=== PATIENT | male | born 1960 | race African-American/Black ===

== ENCOUNTER 2019-07-02 13:03 | Inpatient (IN) | payer OTHER ==
[2019-07-02 14:41] VITALS: BMI 33.5
--- NOTE | 2019-07-02 15:41 | HP ---
CIWA Score Nausea/Vomitin-No Nausea/No Vomiting Muscle Tremors: None Anxiety: 0-No Anxiety, at Ease Agitation: 0-Normal Activity Paroxysmal Sweats: No Perspiration Orientation: 0-Oriented Tacttile Disturbances: 0-None Auditory Disturbances: 0-None Visual Disturbances: 0-None Headache: 1-Very Mild CIWA-Ar Total Score: 1 - Admission Criteria OASAS Guidelines: Admission for Medically Managed Detox: Requires at least one of the followin. CIWA greater than 12 2. Seizures within the past 24 hours 3. Delirium tremens within the past 24 hours 4. Hallucinations within the past 24 hours 5. Acute intervention needed for co occurring medical disorder 6. Acute intervention needed for co occurring psychiatric disorder 7. Severe withdrawal that cannot be handled at a lower level of care (continued vomiting, continued diarrhea, abnormal vital signs) requiring intravenous medication and/or fluids 8. Patient presents the following: None of the above Admission Criteria Met: Admission criteria not met Admitting History and Physical - Primary Care Physician PCP: Dr. Singleton ([facility]) - Admission Chief Complaint: seeking rehab for alcohol History of Present Illness: Seeking rehab for alcohol Has been drinking off and on since age 29. Drinks a quart of vodka daily. Has withdrawn. Has not had a seizure. Has had blackouts. Has been to detox and rehab in the past. Last drink last week. Smokes 9 cigarettes daily since age 34. Has snorted cocaine, smoked crack, PCP in the past. Never injected. Never used heroin, fentanyl, prescription drugs. Denies sweating, anxiety, agitation, audio/visual hallucinations, headache, fever, chills Complains of throbbing L frontal headache for several weeks. Occurs twice weekly. Comes on at night. Worsened by anxiety. Takes 4 baby aspirin daily for the past few weeks. Headache has no relationship to time of day. Not worsened by light or noise. No neck stiffness. No head trauma. Fell some time ago. Not clear when. L wrist uncomfortable. Denies seizure. Denies head trauma. PMH: DM PSH: [facility] for abdominal surgery - likely obstruction Psych: was seeing therapist at [facility] but stopped. Anxiety/Depression Meds: takes a medication to help him stop drinking but does not recall the name. Medication for DM. Allergies: none Social: Lives with parents and brothers in [facility]. Sexually active with one female partner; does not use condoms Meds confirmed. Pt brought pills with him. Will admit for rehab History Source: Patient Limitations to Obtaining History: No Limitations - Past Medical History DEPUTY SHERIFF: No: Migraine Cardiovascular: No: HTN Pulmonary: No: Asthma Gastrointestinal: Yes: Other (hx SBO requiring surgery) Renal/: No: Renal Failure Heme/Onc: No: Anemia Infectious Disease: No: HIV (has been screened) Psych: Yes: Anxiety, Depression - Past Surgical History Additional Past Surgical History: Abdominal surgery, likely for SBO - Smoking History Smoking history: Current every day smoker Have you smoked in the past 12 months: Yes Aproximately how many cigarettes per day: 9 - Alcohol/Substance Use Hx Alcohol Use: Yes History of Substance Use: reports: None (2 quarts vodka) Date of Last Use: 06/25/19 - Social History Usual Living Arrangement: Yes: With Parent ADL: Independent Occupation: was a doorman. Currently unemployed History of Recent Travel: No Admission [facility] Allergies/Adverse Reactions: Allergies Allergy/AdvReac Type Severity Reaction Status Date / Time No Known Allergies Allergy Verified 07/02/19 14:23 Exam Limitations: No Limitations - Ebola screening Have you traveled outside of the country in the last 21 days: No Have you had contact with anyone from an Ebola affected area: No Do you have a fever: No - Review of Systems Constitutional: See HPI EENT: reports: No Symptoms Reported Respiratory: reports: No Symptoms reported Cardiac: reports: No Symptoms Reported GI: reports: No Symptoms Reported : reports: No Symptoms Reported Musculoskeletal: reports: No Symptoms Reported Integumentary: reports: No Symptoms Reported Neuro: reports: Headache Patient History - Patient Medical History Hx Asthma: No Hx Chronic Obstructive Pulmonary Disease (COPD): No Hx Cardiac Disorders: No Hx Hypertension: Yes (ON MEDS) Hx Seizures: Yes (LAST YEAR ETOH RLT) Hx Diabetes: Yes (ON MEDS) Hx Gastrointestinal Disorders: No Hx Genitourinary Disorders: No Hx Sexually Transmitted Disorders: No Hx Renal Disease (ESRD): No Hx Depression: No Hx Suicide Attempt: No Hx Schizophrenia: No - Patient Surgical History Past Surgical History: No Hx Neurologic Surgery: No Hx Cataract Extraction: No Hx Cardiac Surgery: No Hx Lung Surgery: No Hx Breast Surgery: No Hx Breast Biopsy: No Hx Abdominal Surgery: No Hx Appendectomy: No Hx Cholecystectomy: No Hx Genitourinary Surgery: No Hx Section: No Hx Orthopedic Surgery: No Anesthesia Reaction: No - PPD History Previous Implant?: Yes Documented Results: Negative w/o proof Implanted On Prior R Admission?: No - Smoking Cessation Smoking history: Current every day smoker Have you smoked in the past 12 months: Yes Aproximately how many cigarettes per day: 9 Hx Chewing Tobacco Use: No Initiated information on smoking cessation: Yes 'Breaking Loose' booklet given: 07/02/19 - Substances abused Alcohol Substance route: Oral Frequency: 3-6 times per week Amount used: VODKA- A QUART / BEERS 6PK [id number] Age of first use: 29 Date of last use: 06/25/19 Admission Physical Exam BHS - Vital Signs Vital Signs: Vital Signs - 24 hr 07/02/19 14:22 Temperature 98.2 F Pulse Rate 92 H Respiratory 19 Rate Blood Pressure 134/91 - Physical General Appearance: Yes: Within Normal Limits HEENTM: Yes: Within Normal Limits, EOMI, Hearing grossly Normal, Normal ENT Inspection, Normocephalic, Normal Voice, MT Respiratory: Yes: Within Normal Limits, Lungs Clear Neck: Yes: Within Normal Limits, No masses,lesions,Nodules Cardiology: Yes: Within Normal Limits, Regular Rhythm, Regular Rate, S1, S2 Abdominal: Yes: Within Normal Limits, Normal Bowel Sounds, Non Tender, Soft Back: Yes: Normal Inspection Musculoskeletal: Yes: Within Normal Limits Extremities: Yes: Within Normal Limits Neurological: Yes: Within Normal Limits, review appraiser II-XII NML intact, Fully Oriented, Alert, Motor Strength 5/5 Screened but not Admitted - Documentation of Visit Screened but not Admitted: No Breathalyzer - Breathalyzer Breathalyzer: 0 Urine Drug Screen - Test Device Lot number: [id number] Expiration date: 01/02/21 - Control Is test valid?: Yes - Results Drug screen NEGATIVE: Yes Inpatient Rehab Admission - Rehab Decision to Admit Inpatient rehab admission?: Yes - Initial Determination Are CD services needed?: Yes Free of communicable disease: Yes Not in need of hospitalization: Yes - Rehab Admission Criteria Previous failed treatment: Yes Poor recovery environment: Yes Comorbidities: Yes Lacks judgement: Yes Patient is meeting Inpatient Rehab admission criteria:: Yes
[2019-07-02] MEDS ORDERED: IBUPROFEN 400 MG TABLET (FP) PO PRN (16:07)
[2019-07-02] MEDS ORDERED: P-EPHED 60MG/TRIPROLIDI 2.5MG TABLET PO PRN (16:07)
[2019-07-02] MEDS ORDERED: LOPERAMIDE HCL 2 MG CAPSULE PO PRN (16:07)
[2019-07-02] MEDS ORDERED: guaiFENesin 200 MG/10 ML 10 ML UNIT-DOSE CUPS PO PRN (16:07)
[2019-07-02] MEDS ORDERED: MAGNESIUM HYDROX 2400MG/30ML ORAL SUSPENSION 30 ML CUP PO PRN (16:07)
--- NOTE | 2019-07-02 16:43 | PN ---
Teaching Attending Note Name of Resident: Solomon Dangelo ATTENDING PHYSICIAN STATEMENT I saw and evaluated the patient. I reviewed the resident's note and discussed the case with the resident. I agree with the resident's findings and plan as documented. SUBJECTIVE: 58 y.o. male here for etoh use, reports latest use was Monday , denies seizures , + falls while intoxicated most recently 3 days ago , hit left elbow, denies pain in the elbow, reports some discomfort in the left wrist, denies LOC , denies head trauma . tobacco : 9 cigarettes /day since age 34. PMH: DM, HTN , HLD , HF PSH: [facility] for abdominal surgery Psych: Anxiety/Depression denies SI / HI CIWA 1 OBJECTIVE: wnwd Vital Signs - 24 hr 07/02/19 14:22 Temperature 98.2 F Pulse Rate 92 H Respiratory 19 Rate Blood Pressure 134/91 ASSESSMENT AND PLAN: AUD - rehab
[2019-07-02] MEDS: GABAPENTIN 300 MG CAPSULE PO SCH (21:37)
[2019-07-02] MEDS: ATORVASTATIN CA 40 MG TABLET (FP) PO SCH (21:37)
[2019-07-02] MEDS: ACETAMINOPHEN 325 MG TABLET (FP) PO PRN (21:37)
[2019-07-02] MEDS: FAMOTIDINE 40 MG TABLET PO SCH (21:37)
[2019-07-03] MEDS: metFORMIN HCL 500 MG TABLET (FP) PO SCH (06:13)
[2019-07-03] MEDS: sitaGLIPtin PHOSPHATE 50 MG TABLET PO SCH (06:13)
[2019-07-03] MEDS: INSULIN SLIDING SCALE (NOVOLOG) 1 VIAL SQ SCH ×2 (06:14→17:11)
[2019-07-03] MEDS: MAG HYDROX/AL HYDROX/SIMETH 30 ML UNIT-DOSE CUP PO PRN (09:51)
[2019-07-03] MEDS ORDERED: PATIENT'S OWN MEDICATION (NON-FORMULARY) (Sitagliptin Phos/Metformin Hcl [Janumet Xr 50-1, PO SCH (10:00)
[2019-07-03] MEDS ORDERED: PATIENT'S OWN MEDICATION (NON-FORMULARY) (Empagliflozin [Jardiance] 25 MG) PO SCH (10:00)
[2019-07-03] MEDS ORDERED: ONDANSETRON *ODT* 4 MG TABLET SL PRN (10:18)
--- NOTE | 2019-07-03 10:25 | PN ---
[facility] Progress Note (SOAP) Subjective: Patient admitted to [address] [place] [address] yesterday. He states that he vomited x 3 after breakfast. Reports that he drank milk and that bothers his stomach; after eating he reclined flat on the bed. He also reports a hx of GERD, is on PEPCID. He was also treated at [facility] 1-3 months ago for vomiting, a stomach virus, and constipation (?). He has been actively using lee ann dust prior to admission and now reports headaches related to same. Denies stomach pain, diarrhea. Objective: Laboratory Last Values POC Glucometer 185 UNITS (80-120) 07/03/19 06:12 Vital Signs Period Temp Pulse Resp BP Sys/Rendon Pulse Ox Last 24 Hr 97.2 F-98.2 F 78-92 18-19 134-137/91-92 P/E: General: no apparent distress HEENTM: PERRLA, normocephalic Neck: supple Lungs: clear Heart: s1 s2 ABD: +BS Neuro: CN 2-12 intact. 07/03/19 10:23 Assessment: Vomiting r/t GERD Headache OVIDIO 07/03/19 10:24 07/03/19 10:24 07/03/19 10:28 Plan: Vomiting: Maalox, now. Zofran PRN ordered. Encouraged to sit up after eating, avoid dairy products Headache: tylenol PRN, Increase H2O OVIDIO: Continue rehab, maintain safety
[2019-07-03] MEDS: GABAPENTIN 300 MG CAPSULE PO SCH ×2 (10:50→21:44)
[2019-07-03] MEDS: ASPIRIN 81 MG CHEWABLE TABLETS PO SCH (10:50)
[2019-07-03] MEDS: NIFEdipine E.R 60 MG TABLET PO SCH (10:50)
[2019-07-03] MEDS: THIAMINE HCL 100 MG TABLET (FP) PO SCH (10:50)
[2019-07-03] MEDS: LISINOPRIL 5 MG TABLET (FP) PO SCH (10:50)
[2019-07-03] MEDS: HYDROCHLOROTHIAZIDE 25 MG TABLET (FP) PO SCH (10:50)
[2019-07-03] MEDS: NICOTINE 14 MG/24 HOURS TOPICAL PATCH TD SCH (10:51)
[2019-07-03 12:22] LABS: HEMATOCRIT 46.2 % (35.4-49); HEMOGLOBIN 15.3 GM/dL (11.7-16.9); MCHC 33.1 g/dl (32.0-35.9); MEAN CELL VOLUME 78.5 fl (80-96); MEAN PLT VOLUME 9.3 fl (7.5-11.1); PLATELET COUNT 280 K/MM3 (134-434); RBC 5.88 M/mm3 (4.00-5.60); RDW 15.4 % (11.9-15.9); WHITE BLOOD COUNT 9.9 K/mm3 (4.0-10.0)
[2019-07-03 12:36] LABS: ALBUMIN 4.3 g/dl (3.4-5.0); BILIRUBIN,TOTAL 0.5 mg/dL (0.2-1); BLOOD UREA NITROGEN 13.6 mg/dL (7-18); CALCIUM 9.7 mg/dL (8.5-10.1); CREATININE 1.1 mg/dL (0.55-1.3); POTASSIUM 4.3 mmol/L (3.5-5.1); TOT PROT 7.6 g/dl (6.4-8.2)
[2019-07-03 12:36] LABS: PH,URINE 6.5 (5.0-8.0); URINE APPEARANCE CLEAR; URINE BILIRUBIN NEGATIVE (NEGATIVE); URINE COLOR YELLOW; URINE GLUCOSE (UA) 3+ (NEGATIVE); URINE KETONE NEGATIVE (NEGATIVE); URINE LEUK ESTERASE NEGATIVE (NEGATIVE); URINE NITRITE NEGATIVE (NEGATIVE); URINE PROTEIN NEGATIVE (NEGATIVE)
[2019-07-03] MEDS: MULTIVITAMINS (DAILY MVI) TABLET (FP) PO SCH (14:10)
--- NOTE | 2019-07-03 15:33 | EKG ---
Test Reason : Blood Pressure : / mmHG Vent. Rate : 073 BPM Atrial Rate : 073 BPM P-R Int : 146 ms QRS Dur : 092 ms QT Int : 392 ms P-R-T Axes : 063 015 -26 degrees QTc Int : 431 ms NORMAL SINUS RHYTHM NONSPECIFIC T WAVE ABNORMALITY ABNORMAL ECG NO PREVIOUS ECGS AVAILABLE Confirmed by MD Gabriela, Jesse ([id number]) on 07/03/2019 3:32:47 PM Referred By: Tonio FRAUSTO Confirmed By:Jesse Ochoa MD
[2019-07-03] MEDS: MELATONIN 5 MG TABLETS PO PRN (21:44)
[2019-07-03] MEDS: ATORVASTATIN CA 40 MG TABLET (FP) PO SCH (21:44)
[2019-07-03] MEDS: FAMOTIDINE 40 MG TABLET PO SCH (21:46)
[2019-07-04] MEDS: metFORMIN HCL 500 MG TABLET (FP) PO SCH (07:02)
[2019-07-04] MEDS: sitaGLIPtin PHOSPHATE 50 MG TABLET PO SCH (07:02)
[2019-07-04] MEDS: INSULIN SLIDING SCALE (NOVOLOG) 1 VIAL SQ SCH ×2 (07:04→17:06)
[2019-07-04] MEDS: NICOTINE 14 MG/24 HOURS TOPICAL PATCH TD SCH (10:56)
[2019-07-04] MEDS: LISINOPRIL 5 MG TABLET (FP) PO SCH (10:56)
[2019-07-04] MEDS: ASPIRIN 81 MG CHEWABLE TABLETS PO SCH (10:56)
[2019-07-04] MEDS: NIFEdipine E.R 60 MG TABLET PO SCH (10:56)
[2019-07-04] MEDS: GABAPENTIN 300 MG CAPSULE PO SCH ×2 (10:56→22:06)
[2019-07-04] MEDS: HYDROCHLOROTHIAZIDE 25 MG TABLET (FP) PO SCH (10:56)
[2019-07-04] MEDS: THIAMINE HCL 100 MG TABLET (FP) PO SCH (10:57)
[2019-07-04] MEDS: MULTIVITAMINS (DAILY MVI) TABLET (FP) PO SCH (12:10)
[2019-07-04] MEDS: FAMOTIDINE 40 MG TABLET PO SCH (22:05)
[2019-07-04] MEDS: ATORVASTATIN CA 40 MG TABLET (FP) PO SCH (22:07)
[2019-07-05] MEDS: sitaGLIPtin PHOSPHATE 50 MG TABLET PO SCH (06:21)
[2019-07-05] MEDS: metFORMIN HCL 500 MG TABLET (FP) PO SCH (06:21)
[2019-07-05] MEDS: INSULIN SLIDING SCALE (NOVOLOG) 1 VIAL SQ SCH ×2 (06:24→16:27)
[2019-07-05] MEDS: GABAPENTIN 300 MG CAPSULE PO SCH ×2 (10:48→21:38)
[2019-07-05] MEDS: ASPIRIN 81 MG CHEWABLE TABLETS PO SCH (10:49)
[2019-07-05] MEDS: LISINOPRIL 5 MG TABLET (FP) PO SCH (10:49)
[2019-07-05] MEDS: MULTIVITAMINS (DAILY MVI) TABLET (FP) PO SCH (10:49)
[2019-07-05] MEDS: NIFEdipine E.R 60 MG TABLET PO SCH (10:49)
[2019-07-05] MEDS: THIAMINE HCL 100 MG TABLET (FP) PO SCH ×2 (10:49→21:38)
[2019-07-05] MEDS: HYDROCHLOROTHIAZIDE 25 MG TABLET (FP) PO SCH (10:49)
[2019-07-05] MEDS: NICOTINE 14 MG/24 HOURS TOPICAL PATCH TD SCH (10:49)
[2019-07-05] MEDS: ATORVASTATIN CA 40 MG TABLET (FP) PO SCH (21:38)
[2019-07-05] MEDS: FAMOTIDINE 20 MG TABLET PO SCH (21:55)
[2019-07-06] MEDS: metFORMIN HCL 500 MG TABLET (FP) PO SCH (06:23)
[2019-07-06] MEDS: sitaGLIPtin PHOSPHATE 50 MG TABLET PO SCH (06:24)
[2019-07-06] MEDS: INSULIN SLIDING SCALE (NOVOLOG) 1 VIAL SQ SCH ×2 (06:32→16:28)
[2019-07-06] MEDS: HYDROCHLOROTHIAZIDE 25 MG TABLET (FP) PO SCH (10:22)
[2019-07-06] MEDS: NIFEdipine E.R 60 MG TABLET PO SCH (10:22)
[2019-07-06] MEDS: LISINOPRIL 5 MG TABLET (FP) PO SCH (10:22)
[2019-07-06] MEDS: GABAPENTIN 300 MG CAPSULE PO SCH ×2 (10:22→22:06)
[2019-07-06] MEDS: ASPIRIN 81 MG CHEWABLE TABLETS PO SCH (10:22)
[2019-07-06] MEDS: NICOTINE 14 MG/24 HOURS TOPICAL PATCH TD SCH (10:23)
[2019-07-06] MEDS: THIAMINE HCL 100 MG TABLET (FP) PO SCH (10:24)
[2019-07-06] MEDS: MULTIVITAMINS (DAILY MVI) TABLET (FP) PO SCH (10:25)
--- NOTE | 2019-07-06 11:57 | PN ---
S Progress Note Note: pt requesting Mag citrate for constipation , states helpful in the past . c/o left elbow pain h/o fall > 2 weeks ago . Vital Signs - 24 hr 07/06/19 07/06/19 07/06/19 00:30 03:30 07:10 Temperature 97.8 F Pulse Rate 78 Respiratory 18 18 18 Rate Blood Pressure 115/71 07/06/19 09:12 Temperature 97.6 F Pulse Rate 88 Respiratory 18 Rate Blood Pressure 143/86 P :Constipation prophylaxis : Mag Citrate in standard admission sets. Left elbow pain - XR ordered, f/up w/ orthopedics after d/c . Pt verbalizes understanding and agreement .
[2019-07-06] MEDS: ATORVASTATIN CA 40 MG TABLET (FP) PO SCH (22:06)
[2019-07-06] MEDS: FAMOTIDINE 20 MG TABLET PO SCH (22:06)
[2019-07-07] MEDS: metFORMIN HCL 500 MG TABLET (FP) PO SCH (06:28)
[2019-07-07] MEDS: sitaGLIPtin PHOSPHATE 50 MG TABLET PO SCH (06:28)
[2019-07-07] MEDS ORDERED: INSULIN (NOVOLOG) ASPART 100 UNITS/ML 10ML VIAL ONE (06:32)
[2019-07-07] MEDS: INSULIN SLIDING SCALE (NOVOLOG) 1 VIAL SQ SCH ×2 (06:32→17:36)
[2019-07-07] MEDS: MAGNESIUM CITRATE 300 ML BOTTLE PO PRN (06:57)
[2019-07-07] MEDS: HYDROCHLOROTHIAZIDE 25 MG TABLET (FP) PO SCH (10:37)
[2019-07-07] MEDS: ASPIRIN 81 MG CHEWABLE TABLETS PO SCH (10:37)
[2019-07-07] MEDS: NIFEdipine E.R 60 MG TABLET PO SCH (10:37)
[2019-07-07] MEDS: LISINOPRIL 5 MG TABLET (FP) PO SCH (10:37)
[2019-07-07] MEDS: GABAPENTIN 300 MG CAPSULE PO SCH ×2 (10:37→21:38)
[2019-07-07] MEDS: NICOTINE 14 MG/24 HOURS TOPICAL PATCH TD SCH (10:38)
[2019-07-07] MEDS: MULTIVITAMINS (DAILY MVI) TABLET (FP) PO SCH (10:38)
[2019-07-07] MEDS: THIAMINE HCL 100 MG TABLET (FP) PO SCH (10:40)
[2019-07-07] MEDS: FAMOTIDINE 20 MG TABLET PO SCH (21:38)
[2019-07-07] MEDS: ATORVASTATIN CA 40 MG TABLET (FP) PO SCH (21:38)
[2019-07-07] MEDS: MELATONIN 5 MG TABLETS PO PRN (21:38)
[2019-07-08] MEDS: metFORMIN HCL 500 MG TABLET (FP) PO SCH (06:44)
[2019-07-08] MEDS: sitaGLIPtin PHOSPHATE 50 MG TABLET PO SCH (06:45)
[2019-07-08] MEDS ORDERED: INSULIN (NOVOLOG) ASPART 100 UNITS/ML 10ML VIAL ONE ×2 (07:32→16:27)
[2019-07-08] MEDS: INSULIN SLIDING SCALE (NOVOLOG) 1 VIAL SQ SCH ×2 (07:36→16:33)
[2019-07-08] MEDS: LISINOPRIL 5 MG TABLET (FP) PO SCH (10:58)
[2019-07-08] MEDS: GABAPENTIN 300 MG CAPSULE PO SCH ×2 (10:58→21:46)
[2019-07-08] MEDS: MULTIVITAMINS (DAILY MVI) TABLET (FP) PO SCH (10:58)
[2019-07-08] MEDS: THIAMINE HCL 100 MG TABLET (FP) PO SCH (10:58)
[2019-07-08] MEDS: HYDROCHLOROTHIAZIDE 25 MG TABLET (FP) PO SCH (10:58)
[2019-07-08] MEDS: NIFEdipine E.R 60 MG TABLET PO SCH (10:58)
[2019-07-08] MEDS: ASPIRIN 81 MG CHEWABLE TABLETS PO SCH (10:58)
[2019-07-08] MEDS: NICOTINE 14 MG/24 HOURS TOPICAL PATCH TD SCH (10:58)
--- NOTE | 2019-07-08 11:39 | PN ---
BHS Progress Note Note: Patient c/o redness to both eyes. Denies discharge, burning, tearing and itching. PE +perrla, eoms intact bl sclera with mild redness no discharge presents a/p: OU redness will order Visine drops prn
[2019-07-08] MEDS: TETRAHYDROZOLINE HCL EYE DROPS OU PRN (12:34)
[2019-07-08] MEDS: ATORVASTATIN CA 40 MG TABLET (FP) PO SCH (21:45)
[2019-07-08] MEDS: FAMOTIDINE 20 MG TABLET PO SCH (21:46)
[2019-07-08] MEDS: MELATONIN 5 MG TABLETS PO PRN (21:47)
[2019-07-09] MEDS: metFORMIN HCL 500 MG TABLET (FP) PO SCH (07:06)
[2019-07-09] MEDS: sitaGLIPtin PHOSPHATE 50 MG TABLET PO SCH (07:07)
[2019-07-09] MEDS ORDERED: INSULIN (NOVOLOG) ASPART 100 UNITS/ML 10ML VIAL ONE (07:09)
[2019-07-09] MEDS: INSULIN SLIDING SCALE (NOVOLOG) 1 VIAL SQ SCH ×2 (07:10→16:42)
[2019-07-09] MEDS: LISINOPRIL 5 MG TABLET (FP) PO SCH (10:59)
[2019-07-09] MEDS: HYDROCHLOROTHIAZIDE 25 MG TABLET (FP) PO SCH (10:59)
[2019-07-09] MEDS: GABAPENTIN 300 MG CAPSULE PO SCH ×2 (10:59→21:46)
[2019-07-09] MEDS: NIFEdipine E.R 60 MG TABLET PO SCH (10:59)
[2019-07-09] MEDS: THIAMINE HCL 100 MG TABLET (FP) PO SCH (10:59)
[2019-07-09] MEDS: NICOTINE 14 MG/24 HOURS TOPICAL PATCH TD SCH (10:59)
[2019-07-09] MEDS: ASPIRIN 81 MG CHEWABLE TABLETS PO SCH (10:59)
[2019-07-09] MEDS: MULTIVITAMINS (DAILY MVI) TABLET (FP) PO SCH (11:00)
[2019-07-09] MEDS: MENTHOL/PHENOL 1 EACH UD MM PRN (11:02)
[2019-07-09] MEDS: ATORVASTATIN CA 40 MG TABLET (FP) PO SCH (21:46)
[2019-07-09] MEDS: FAMOTIDINE 20 MG TABLET PO SCH (21:46)
[2019-07-09] MEDS: MELATONIN 5 MG TABLETS PO PRN (21:46)
[2019-07-10] MEDS ORDERED: INSULIN (NOVOLOG) ASPART 100 UNITS/ML 10ML VIAL ONE ×2 (06:36→16:18)
[2019-07-10] MEDS: metFORMIN HCL 500 MG TABLET (FP) PO SCH (06:36)
[2019-07-10] MEDS: sitaGLIPtin PHOSPHATE 50 MG TABLET PO SCH (06:37)
[2019-07-10] MEDS: INSULIN SLIDING SCALE (NOVOLOG) 1 VIAL SQ SCH ×2 (06:37→16:23)
[2019-07-10] MEDS: TETRAHYDROZOLINE HCL EYE DROPS OU PRN (07:15)
[2019-07-10] MEDS: NIFEdipine E.R 60 MG TABLET PO SCH (10:22)
[2019-07-10] MEDS: HYDROCHLOROTHIAZIDE 25 MG TABLET (FP) PO SCH (10:22)
[2019-07-10] MEDS: LISINOPRIL 5 MG TABLET (FP) PO SCH (10:22)
[2019-07-10] MEDS: ASPIRIN 81 MG CHEWABLE TABLETS PO SCH (10:22)
[2019-07-10] MEDS: MULTIVITAMINS (DAILY MVI) TABLET (FP) PO SCH (10:22)
[2019-07-10] MEDS: GABAPENTIN 300 MG CAPSULE PO SCH ×2 (10:22→21:21)
[2019-07-10] MEDS: NICOTINE 14 MG/24 HOURS TOPICAL PATCH TD SCH (10:22)
[2019-07-10] MEDS: THIAMINE HCL 100 MG TABLET (FP) PO SCH (10:22)
[2019-07-10] MEDS: ACETAMINOPHEN 325 MG TABLET (FP) PO PRN (10:24)
[2019-07-10] MEDS: MELATONIN 5 MG TABLETS PO PRN (21:21)
[2019-07-10] MEDS: ATORVASTATIN CA 40 MG TABLET (FP) PO SCH (21:21)
[2019-07-10] MEDS: FAMOTIDINE 20 MG TABLET PO SCH (21:21)
[2019-07-10] MEDS: MAGNESIUM CITRATE 300 ML BOTTLE PO PRN (21:25)
[2019-07-11] MEDS: metFORMIN HCL 500 MG TABLET (FP) PO SCH (06:26)
[2019-07-11] MEDS: sitaGLIPtin PHOSPHATE 50 MG TABLET PO SCH (06:27)
[2019-07-11] MEDS ORDERED: INSULIN (NOVOLOG) ASPART 100 UNITS/ML 10ML VIAL ONE ×3 (06:29→16:23)
[2019-07-11] MEDS: INSULIN SLIDING SCALE (NOVOLOG) 1 VIAL SQ SCH ×2 (06:31→16:19)
[2019-07-11] MEDS: LISINOPRIL 5 MG TABLET (FP) PO SCH (10:17)
[2019-07-11] MEDS: THIAMINE HCL 100 MG TABLET (FP) PO SCH (10:17)
[2019-07-11] MEDS: GABAPENTIN 300 MG CAPSULE PO SCH ×2 (10:17→21:37)
[2019-07-11] MEDS: ASPIRIN 81 MG CHEWABLE TABLETS PO SCH (10:17)
[2019-07-11] MEDS: HYDROCHLOROTHIAZIDE 25 MG TABLET (FP) PO SCH (10:18)
[2019-07-11] MEDS: NICOTINE 14 MG/24 HOURS TOPICAL PATCH TD SCH (10:18)
[2019-07-11] MEDS: MULTIVITAMINS (DAILY MVI) TABLET (FP) PO SCH (10:18)
[2019-07-11] MEDS: NIFEdipine E.R 60 MG TABLET PO SCH (10:18)
[2019-07-11] MEDS: ATORVASTATIN CA 40 MG TABLET (FP) PO SCH (21:37)
[2019-07-11] MEDS: MELATONIN 5 MG TABLETS PO PRN (21:37)
[2019-07-11] MEDS: FAMOTIDINE 20 MG TABLET PO SCH (21:37)
[2019-07-12] MEDS: metFORMIN HCL 500 MG TABLET (FP) PO SCH (07:00)
[2019-07-12] MEDS: sitaGLIPtin PHOSPHATE 50 MG TABLET PO SCH (07:01)
[2019-07-12] MEDS: INSULIN SLIDING SCALE (NOVOLOG) 1 VIAL SQ SCH ×2 (07:04→16:28)
[2019-07-12] MEDS ORDERED: INSULIN (NOVOLOG) ASPART 100 UNITS/ML 10ML VIAL ONE ×3 (07:04→16:31)
[2019-07-12] MEDS: TETRAHYDROZOLINE HCL EYE DROPS OU PRN (07:05)
[2019-07-12] MEDS: ASPIRIN 81 MG CHEWABLE TABLETS PO SCH (10:48)
[2019-07-12] MEDS: LISINOPRIL 5 MG TABLET (FP) PO SCH (10:48)
[2019-07-12] MEDS: HYDROCHLOROTHIAZIDE 25 MG TABLET (FP) PO SCH (10:48)
[2019-07-12] MEDS: MULTIVITAMINS (DAILY MVI) TABLET (FP) PO SCH (10:48)
[2019-07-12] MEDS: NICOTINE 14 MG/24 HOURS TOPICAL PATCH TD SCH (10:48)
[2019-07-12] MEDS: NIFEdipine E.R 60 MG TABLET PO SCH (10:48)
[2019-07-12] MEDS: GABAPENTIN 300 MG CAPSULE PO SCH ×2 (10:48→21:12)
[2019-07-12] MEDS: THIAMINE HCL 100 MG TABLET (FP) PO SCH (10:48)
--- NOTE | 2019-07-12 15:36 | PN ---
S Progress Note Note: Xray results ordered on admission for left elbow and hand/wrist are negative for pathology. Pt reports slight tenderness to areas. Vital Signs - 24 hr 07/12/19 07/12/19 07/12/19 00:30 03:30 07:52 Temperature 97.0 F L Pulse Rate 83 Respiratory 20 18 18 Rate Blood Pressure 116/80 07/12/19 10:00 Temperature Pulse Rate 101 H Respiratory Rate Blood Pressure 120/78 Alert o x 3 nad oob ambulating with steady gait L U extremities/skin;no swelling; skin intact. A/P s/p truama on the street before admission analgesic balm apply as directed motrin prn for pain. copy of xray results given to patient to follow up with his provider after discharge.
[2019-07-12] MEDS: MELATONIN 5 MG TABLETS PO PRN (21:11)
[2019-07-12] MEDS: FAMOTIDINE 20 MG TABLET PO SCH (21:12)
[2019-07-12] MEDS: ATORVASTATIN CA 40 MG TABLET (FP) PO SCH (21:12)
[2019-07-12] MEDS: METHYL SALICYLATE/MENTHOL OINT 30 GM TUBE TP SCH (21:13)
[2019-07-13] MEDS: metFORMIN HCL 500 MG TABLET (FP) PO SCH (06:11)
[2019-07-13] MEDS: sitaGLIPtin PHOSPHATE 50 MG TABLET PO SCH (06:11)
[2019-07-13] MEDS ORDERED: INSULIN (NOVOLOG) ASPART 100 UNITS/ML 10ML VIAL ONE ×3 (07:31→18:03)
[2019-07-13] MEDS: INSULIN SLIDING SCALE (NOVOLOG) 1 VIAL SQ SCH ×2 (07:56→16:52)
[2019-07-13] MEDS: ASPIRIN 81 MG CHEWABLE TABLETS PO SCH (10:39)
[2019-07-13] MEDS: NICOTINE 14 MG/24 HOURS TOPICAL PATCH TD SCH (10:39)
[2019-07-13] MEDS: ACETAMINOPHEN 325 MG TABLET (FP) PO PRN (10:39)
[2019-07-13] MEDS: GABAPENTIN 300 MG CAPSULE PO SCH ×2 (10:39→21:59)
[2019-07-13] MEDS: HYDROCHLOROTHIAZIDE 25 MG TABLET (FP) PO SCH (10:39)
[2019-07-13] MEDS: NIFEdipine E.R 60 MG TABLET PO SCH (10:39)
[2019-07-13] MEDS: LISINOPRIL 5 MG TABLET (FP) PO SCH (10:39)
[2019-07-13] MEDS: METHYL SALICYLATE/MENTHOL OINT 30 GM TUBE TP SCH ×2 (10:41→21:45)
[2019-07-13] MEDS: MULTIVITAMINS (DAILY MVI) TABLET (FP) PO SCH (10:41)
[2019-07-13] MEDS: THIAMINE HCL 100 MG TABLET (FP) PO SCH (10:42)
[2019-07-13] MEDS ORDERED: ATORVASTATIN CA 20 MG TABLET (FP) ONE (19:05)
[2019-07-13] MEDS: ATORVASTATIN CA 40 MG TABLET (FP) PO SCH (21:44)
[2019-07-13] MEDS: FAMOTIDINE 20 MG TABLET PO SCH (21:44)
[2019-07-13] MEDS: MELATONIN 5 MG TABLETS PO PRN (21:45)
[2019-07-14] MEDS: metFORMIN HCL 500 MG TABLET (FP) PO SCH (06:43)
[2019-07-14] MEDS: sitaGLIPtin PHOSPHATE 50 MG TABLET PO SCH (06:44)
[2019-07-14] MEDS ORDERED: INSULIN (NOVOLOG) ASPART 100 UNITS/ML 10ML VIAL ONE ×3 (07:37→18:12)
[2019-07-14] MEDS: INSULIN SLIDING SCALE (NOVOLOG) 1 VIAL SQ SCH ×2 (07:38→16:53)
[2019-07-14] MEDS: TETRAHYDROZOLINE HCL EYE DROPS OU PRN (07:42)
[2019-07-14] MEDS: THIAMINE HCL 100 MG TABLET (FP) PO SCH (10:29)
[2019-07-14] MEDS: GABAPENTIN 300 MG CAPSULE PO SCH ×2 (10:29→21:32)
[2019-07-14] MEDS: LISINOPRIL 5 MG TABLET (FP) PO SCH (10:29)
[2019-07-14] MEDS: HYDROCHLOROTHIAZIDE 25 MG TABLET (FP) PO SCH (10:29)
[2019-07-14] MEDS: NIFEdipine E.R 60 MG TABLET PO SCH (10:29)
[2019-07-14] MEDS: NICOTINE 14 MG/24 HOURS TOPICAL PATCH TD SCH (10:30)
[2019-07-14] MEDS: ASPIRIN 81 MG CHEWABLE TABLETS PO SCH (10:30)
[2019-07-14] MEDS: METHYL SALICYLATE/MENTHOL OINT 30 GM TUBE TP SCH ×2 (10:30→21:33)
[2019-07-14] MEDS: MULTIVITAMINS (DAILY MVI) TABLET (FP) PO SCH (10:33)
[2019-07-14] MEDS: MAG HYDROX/AL HYDROX/SIMETH 30 ML UNIT-DOSE CUP PO PRN (10:33)
[2019-07-14] MEDS ORDERED: ATORVASTATIN CA 20 MG TABLET (FP) ONE (18:51)
[2019-07-14] MEDS: ATORVASTATIN CA 40 MG TABLET (FP) PO SCH (21:32)
[2019-07-14] MEDS: MELATONIN 5 MG TABLETS PO PRN (21:32)
[2019-07-14] MEDS: FAMOTIDINE 20 MG TABLET PO SCH (21:32)
[2019-07-15] MEDS ORDERED: INSULIN (NOVOLOG) ASPART 100 UNITS/ML 10ML VIAL ONE ×3 (06:58→17:14)
[2019-07-15] MEDS: metFORMIN HCL 500 MG TABLET (FP) PO SCH (06:59)
[2019-07-15] MEDS: sitaGLIPtin PHOSPHATE 50 MG TABLET PO SCH (06:59)
[2019-07-15] MEDS: INSULIN SLIDING SCALE (NOVOLOG) 1 VIAL SQ SCH ×2 (06:59→16:44)
[2019-07-15] MEDS: TETRAHYDROZOLINE HCL EYE DROPS OU PRN (07:00)
[2019-07-15] MEDS: ASPIRIN 81 MG CHEWABLE TABLETS PO SCH (10:39)
[2019-07-15] MEDS: METHYL SALICYLATE/MENTHOL OINT 30 GM TUBE TP SCH ×2 (10:40→21:39)
[2019-07-15] MEDS: LISINOPRIL 5 MG TABLET (FP) PO SCH (10:40)
[2019-07-15] MEDS: GABAPENTIN 300 MG CAPSULE PO SCH ×2 (10:40→21:40)
[2019-07-15] MEDS: HYDROCHLOROTHIAZIDE 25 MG TABLET (FP) PO SCH (10:40)
[2019-07-15] MEDS: NIFEdipine E.R 60 MG TABLET PO SCH (10:40)
[2019-07-15] MEDS: MULTIVITAMINS (DAILY MVI) TABLET (FP) PO SCH (10:41)
[2019-07-15] MEDS: NICOTINE 14 MG/24 HOURS TOPICAL PATCH TD SCH (10:43)
[2019-07-15] MEDS: THIAMINE HCL 100 MG TABLET (FP) PO SCH (10:43)
--- NOTE | 2019-07-15 11:52 | DS ---
[facility] Rehab Discharge Summary - [facility] Rehab Discharge Summary Admission Date: 07/02/19 Discharge Date: 07/16/19 - History Present History: Alcohol dependence, PCP dependence Additional Comments: Pt is a 58 y/o male with a hx of alcohol use disorder admitted to rehab and scheduled for discharge tomorrow 07/16/19. Pt has a primary care provider Dr. Patricia Patel at [facility],[address] [place] [address]. . Pt has a rehabilitation caseworker as well for coordination of his care, Ms Laina nAdrews of same facility who spoke with patient today stating that pt has a rescheduled confirmed appointment for 07/24/19(She reported that pt had a holter monitor appointment today but was rescheduled due to his rehab tx pending discharge). Pertinent Past History: HTN DM HLD GERD Depression/Anxiety(no current treatment) - Discharge Physical Exam Vital Signs: Vital Signs Temperature 97.4 F L 07/15/19 07:00 Pulse Rate 91 H 07/15/19 07:00 Respiratory Rate 18 07/15/19 07:00 Blood Pressure 124/80 07/15/19 07:00 O2 Sat by Pulse Oximetry (%) Alert o x 3, denies s/h/i nad oob ambulating with steady gait cardiac;s1 s2, rrr lungs:cta,molina extremities/skin:no edema;skin intact. Pertinent Admission Physical Exam Findings: Laboratory Tests 07/02/19 07/03/19 07/03/19 15:26 06:12 08:05 WBC 9.9 RBC 5.88 H Hgb 15.3 Hct 46.2 MCV 78.5 L MCH 26.0 MCHC 33.1 RDW 15.4 Plt Count 280 MPV 9.3 Sodium Potassium Chloride Carbon Dioxide Anion Gap BUN Creatinine Est GFR (CKD-EPI)AfAm Est GFR (CKD-EPI)NonAf POC Glucometer 115 185 Random Glucose Calcium Total Bilirubin AST ALT Alkaline Phosphatase Total Protein Albumin Urine Color Urine Appearance Urine pH Ur Specific Joseph Urine Protein Urine Glucose (UA) Urine Ketones Urine Blood Urine Nitrite Urine Bilirubin Urine Urobilinogen Ur Leukocyte Esterase RPR Titer 07/03/19 07/03/19 07/03/19 08:05 08:05 08:30 WBC RBC Hgb Hct MCV MCH MCHC RDW Plt Count MPV Sodium 139 Potassium 4.3 Chloride 107 Carbon Dioxide 24 Anion Gap 8 BUN 13.6 Creatinine 1.1 Est GFR (CKD-EPI)AfAm 84.71 Est GFR (CKD-EPI)NonAf 73.09 POC Glucometer Random Glucose 172 H Calcium 9.7 Total Bilirubin 0.5 AST 15 ALT 46 Alkaline Phosphatase 58 Total Protein 7.6 Albumin 4.3 Urine Color Yellow Urine Appearance Clear Urine pH 6.5 Ur Specific Joseph 1.035 Urine Protein Negative Urine Glucose (UA) 3+ H Urine Ketones Negative Urine Blood Negative Urine Nitrite Negative Urine Bilirubin Negative Urine Urobilinogen 1.0 Ur Leukocyte Esterase Negative RPR Titer Nonreactive 07/03/19 07/04/19 07/04/19 17:10 07:00 16:46 WBC RBC Hgb Hct MCV MCH MCHC RDW Plt Count MPV Sodium Potassium Chloride Carbon Dioxide Anion Gap BUN Creatinine Est GFR (CKD-EPI)AfAm Est GFR (CKD-EPI)NonAf POC Glucometer 122 188 193 Random Glucose Calcium Total Bilirubin AST ALT Alkaline Phosphatase Total Protein Albumin Urine Color Urine Appearance Urine pH Ur Specific Joseph Urine Protein Urine Glucose (UA) Urine Ketones Urine Blood Urine Nitrite Urine Bilirubin Urine Urobilinogen Ur Leukocyte Esterase RPR Titer 07/05/19 07/05/19 07/06/19 06:19 16:25 06:21 WBC RBC Hgb Hct MCV MCH MCHC RDW Plt Count MPV Sodium Potassium Chloride Carbon Dioxide Anion Gap BUN Creatinine Est GFR (CKD-EPI)AfAm Est GFR (CKD-EPI)NonAf POC Glucometer 209 194 193 Random Glucose Calcium Total Bilirubin AST ALT Alkaline Phosphatase Total Protein Albumin Urine Color Urine Appearance Urine pH Ur Specific Joseph Urine Protein Urine Glucose (UA) Urine Ketones Urine Blood Urine Nitrite Urine Bilirubin Urine Urobilinogen Ur Leukocyte Esterase RPR Titer 07/06/19 07/07/19 07/07/19 16:26 06:26 16:26 WBC RBC Hgb Hct MCV MCH MCHC RDW Plt Count MPV Sodium Potassium Chloride Carbon Dioxide Anion Gap BUN Creatinine Est GFR (CKD-EPI)AfAm Est GFR (CKD-EPI)NonAf POC Glucometer 157 207 192 Random Glucose Calcium Total Bilirubin AST ALT Alkaline Phosphatase Total Protein Albumin Urine Color Urine Appearance Urine pH Ur Specific Joseph Urine Protein Urine Glucose (UA) Urine Ketones Urine Blood Urine Nitrite Urine Bilirubin Urine Urobilinogen Ur Leukocyte Esterase RPR Titer 07/08/19 07/08/19 07/09/19 06:43 16:33 07:05 WBC RBC Hgb Hct MCV MCH MCHC RDW Plt Count MPV Sodium Potassium Chloride Carbon Dioxide Anion Gap BUN Creatinine Est GFR (CKD-EPI)AfAm Est GFR (CKD-EPI)NonAf POC Glucometer 229 187 266 Random Glucose Calcium Total Bilirubin AST ALT Alkaline Phosphatase Total Protein Albumin Urine Color Urine Appearance Urine pH Ur Specific Joseph Urine Protein Urine Glucose (UA) Urine Ketones Urine Blood Urine Nitrite Urine Bilirubin Urine Urobilinogen Ur Leukocyte Esterase RPR Titer 07/09/19 07/10/19 07/10/19 16:33 06:33 16:22 WBC RBC Hgb Hct MCV MCH MCHC RDW Plt Count MPV Sodium Potassium Chloride Carbon Dioxide Anion Gap BUN Creatinine Est GFR (CKD-EPI)AfAm Est GFR (CKD-EPI)NonAf POC Glucometer 197 226 270 Random Glucose Calcium Total Bilirubin AST ALT Alkaline Phosphatase Total Protein Albumin Urine Color Urine Appearance Urine pH Ur Specific Joseph Urine Protein Urine Glucose (UA) Urine Ketones Urine Blood Urine Nitrite Urine Bilirubin Urine Urobilinogen Ur Leukocyte Esterase RPR Titer 07/11/19 07/11/19 07/12/19 06:25 16:12 06:59 WBC RBC Hgb Hct MCV MCH MCHC RDW Plt Count MPV Sodium Potassium Chloride Carbon Dioxide Anion Gap BUN Creatinine Est GFR (CKD-EPI)AfAm Est GFR (CKD-EPI)NonAf POC Glucometer 266 269 281 Random Glucose Calcium Total Bilirubin AST ALT Alkaline Phosphatase Total Protein Albumin Urine Color Urine Appearance Urine pH Ur Specific Joseph Urine Protein Urine Glucose (UA) Urine Ketones Urine Blood Urine Nitrite Urine Bilirubin Urine Urobilinogen Ur Leukocyte Esterase RPR Titer 07/12/19 07/13/19 07/13/19 16:25 06:10 16:50 WBC RBC Hgb Hct MCV MCH MCHC RDW Plt Count MPV Sodium Potassium Chloride Carbon Dioxide Anion Gap BUN Creatinine Est GFR (CKD-EPI)AfAm Est GFR (CKD-EPI)NonAf POC Glucometer 266 260 366 Random Glucose Calcium Total Bilirubin AST ALT Alkaline Phosphatase Total Protein Albumin Urine Color Urine Appearance Urine pH Ur Specific Joseph Urine Protein Urine Glucose (UA) Urine Ketones Urine Blood Urine Nitrite Urine Bilirubin Urine Urobilinogen Ur Leukocyte Esterase RPR Titer 07/14/19 07/14/19 07/15/19 06:42 16:51 06:54 WBC RBC Hgb Hct MCV MCH MCHC RDW Plt Count MPV Sodium Potassium Chloride Carbon Dioxide Anion Gap BUN Creatinine Est GFR (CKD-EPI)AfAm Est GFR (CKD-EPI)NonAf POC Glucometer [phone] Random Glucose Calcium Total Bilirubin AST ALT Alkaline Phosphatase Total Protein Albumin Urine Color Urine Appearance Urine pH Ur Specific Joseph Urine Protein Urine Glucose (UA) Urine Ketones Urine Blood Urine Nitrite Urine Bilirubin Urine Urobilinogen Ur Leukocyte Esterase RPR Titer - Treatment Discharge Condition: Discharge condition good Hospital Course: CD aftercare referral accepted Rehabilitated safely and responded well Participated in groups and individual sessions. - Medication Discharge Medications: Ambulatory Orders Amlodipine Besylate/Benazepril [Lotrel ] 1 each PO DAILY 07/02/19 Aspirin [ASA -] 81 mg PO DAILY 07/02/19 Atorvastatin Ca [Lipitor] 40 mg PO HS 07/02/19 Benazepril HCl 40 mg PO DAILY 07/02/19 Empagliflozin [Jardiance] 25 mg PO DAILY 07/02/19 Famotidine [Pepcid -] 40 mg PO HS 07/02/19 Gabapentin [Neurontin -] 300 mg PO BID 07/02/19 Glipizide 20 mg PO BID 07/02/19 Hydrochlorothiazide [Hctz -] 25 mg PO DAILY 07/02/19 Lisinopril [Prinivil] 5 mg PO DAILY 07/02/19 Multivitamins [Multivit ([facility] Formulary)] 1 tab PO DAILY 07/02/19 Nifedipine [Nifedipine ER] 60 mg PO DAILY 07/02/19 Sitagliptin Phos/Metformin HCl [Janumet Xr 50-1,000 mg Tablet] 1 each PO DAILY 07/02/19 Thiamine HCl [B-1] 100 mg PO DAILY 07/02/19 - Medication-Assisted Treatment (MAT) Medication-Assisted Treatment (MAT): No MAT Follow-up Referral: Pt reports he has Naltrexone tabs at home and did not want to continue because "it did not work". Reports he took the shot at one point but started drinking after 2 weeks and states he will follow up with his primary care Dr. Patel at [facility] to restart. - Discharge Instructions Diet, activity, other medical instructions: Diet:ARIELLA/NCS Activity: oob ad herber Other medical instructions:follow up with CD aftercare referral as recommended. follow up with your primary care provider Dr. Patel on 07/24/19 as scheduled. - Diagnosis (1) Hypertension Current Visit: Yes Status: Chronic Qualifiers: Hypertension type: essential hypertension Qualified Code(s): I10 - Essential (primary) hypertension (2) Hypercholesterolemia Current Visit: Yes Status: Chronic (3) Type 2 diabetes mellitus Current Visit: Yes Status: Chronic Qualifiers: Diabetes mellitus [employer] insulin use: without [employer] use - Follow-up Referral Minutes to complete discharge: 35 - AMA Did Patient Leave Against Medical Advice: No Additional Comments: Pt reports he has own medications in his property and at home. Ms Andrews spoke to patient and encouraged him to follow up with appointment as scheduled with Dr. Patel on 07/24/19. Ms Andrews confirmed that pt has MAT available to him at his clinic.
[2019-07-15] MEDS: FAMOTIDINE 20 MG TABLET PO SCH (21:40)
[2019-07-15] MEDS: MELATONIN 5 MG TABLETS PO PRN (21:40)
[2019-07-15] MEDS: ATORVASTATIN CA 40 MG TABLET (FP) PO SCH (21:40)
[2019-07-15] MEDS: MENTHOL/PHENOL 1 EACH UD MM PRN (21:41)
[2019-07-16] MEDS: metFORMIN HCL 500 MG TABLET (FP) PO SCH (06:14)
[2019-07-16] MEDS: sitaGLIPtin PHOSPHATE 50 MG TABLET PO SCH (06:15)
[2019-07-16] MEDS ORDERED: INSULIN (NOVOLOG) ASPART 100 UNITS/ML 10ML VIAL ONE (06:17)
[2019-07-16] MEDS: INSULIN SLIDING SCALE (NOVOLOG) 1 VIAL SQ SCH (06:17)
[2019-07-16 07:17] VITALS: TEMP 97.2
[2019-07-16] MEDS: LISINOPRIL 5 MG TABLET (FP) PO SCH (09:16)
[2019-07-16] MEDS: GABAPENTIN 300 MG CAPSULE PO SCH (09:16)
[2019-07-16] MEDS: ASPIRIN 81 MG CHEWABLE TABLETS PO SCH (09:16)
[2019-07-16] MEDS: MULTIVITAMINS (DAILY MVI) TABLET (FP) PO SCH (09:16)
[2019-07-16] MEDS: NIFEdipine E.R 60 MG TABLET PO SCH (09:16)
[2019-07-16] MEDS: HYDROCHLOROTHIAZIDE 25 MG TABLET (FP) PO SCH (09:16)
[2019-07-16] MEDS: NICOTINE 14 MG/24 HOURS TOPICAL PATCH TD SCH (09:17)
[2019-07-16] MEDS: METHYL SALICYLATE/MENTHOL OINT 30 GM TUBE TP SCH (09:17)
[2019-07-16] MEDS: THIAMINE HCL 100 MG TABLET (FP) PO SCH (09:18)
--- NOTE | 2019-07-16 09:18 | PN ---
S Progress Note Note: pt is discharged today as scheduled in stable condition. Vital Signs - 24 hr 07/16/19 07/16/19 03:30 07:16 Temperature 97.2 F L Pulse Rate 87 Respiratory 18 18 Rate Blood Pressure 146/87 Alert o x 3,denies s/h/i nad oob ambulating with steady gait A/P Medically stable D/C pt today Follow up with your PCP and keep doctor's appointment as scheduled on 07/24/19. follow up with CD aftercare as recommended and scheduled.
[2019-07-16 11:13] VITALS: BP 140/84; PULSE 95
== END 2019-07-16 10:05 | disposition home or self-care (01) | DRG 772 ==
LOC: YASAS 13:03 → Y5N 16:33
PROVIDERS: ADMIT Allergy & Immunology; ATTEND Allergy & Immunology
PROC: HZ42ZZZ Group Counseling for Substance Abuse Treatment, Cognitive-Behavioral (ICD-10-PCS; principal; 2019-07-02)
DX: F10.20 Alcohol dependence, uncomplicated (principal); F17.210 Nicotine dependence, cigarettes, uncomplicated; I10 Essential (primary) hypertension; E11.9 Type 2 diabetes mellitus without complications; E78.5 Hyperlipidemia, unspecified; K21.9 Gastro-esophageal reflux disease without esophagitis; H57.89 Other specified disorders of eye and adnexa; J45.909 Unspecified asthma, uncomplicated; M25.522 Pain in left elbow; R51 Headache; Z86.69 Personal history of other diseases of the nervous system and sense organs; Z79.84 Long term (current) use of oral hypoglycemic drugs
CPT/HCPCS: 36415; 73070-TC-LT-FY; 73110-TC-LT-FY; 73130-TC-LT-FY; 80053; 81003; 82962; 85027; 86593; 93005; 93010

== ENCOUNTER 2021-04-02 12:06 | Inpatient (IN) | payer OTHER ==
[2021-04-02 12:38] VITALS: BMI 35.2
[2021-04-02] MEDS ORDERED: NICOTINE 10 MG CARTRIDGE (INHALER) IH PRN (18:37)
[2021-04-02] MEDS ORDERED: P-EPHED 60MG/TRIPROLIDI 2.5MG TABLET PO PRN (18:37)
[2021-04-02] MEDS ORDERED: MAGNESIUM HYDROX 2400MG/30ML ORAL SUSPENSION 30 ML CUP PO PRN (18:37)
[2021-04-02] MEDS ORDERED: hydrOXYzine PAMOATE 25 MG CAPSULE (FP) PO PRN (18:37)
[2021-04-02] MEDS ORDERED: guaiFENesin 200 MG/10 ML 10 ML UNIT-DOSE CUPS PO PRN (18:37)
[2021-04-02] MEDS ORDERED: IBUPROFEN 400 MG TABLET (FP) PO PRN (18:37)
[2021-04-02] MEDS ORDERED: MAGNESIUM CITRATE 300 ML BOTTLE PO PRN (18:37)
[2021-04-02] MEDS ORDERED: LOPERAMIDE HCL 2 MG CAPSULE PO PRN (18:37)
[2021-04-02] MEDS ORDERED: NICOTINE POLACRILEX 2 MG GUM BC PRN (18:37)
[2021-04-02] MEDS ORDERED: SENNOSIDES 8.6MG TABLET (FP) PO PRN (19:48)
[2021-04-02] MEDS ORDERED: INSULIN (NOVOLOG) ASPART 100 UNITS/ML 10ML VIAL ONE (21:26)
[2021-04-02] MEDS: ATORVASTATIN CA 40 MG TABLET (FP) PO SCH (21:26)
[2021-04-02] MEDS: THIAMINE HCL 100 MG TABLET (FP) PO SCH (21:26)
[2021-04-02] MEDS: INSULIN SLIDING SCALE (NOVOLOG) 1 VIAL SQ SCH (21:30)
[2021-04-02] MEDS: ARTIFICIAL TEARS (POLYVINYL ALCOHOL) OPTH DROPS OU SCH (21:30)
[2021-04-03] MEDS ORDERED: glipiZIDE 5 MG TABLET (FP) ONE ×2 (06:16→16:32)
[2021-04-03] MEDS: glipiZIDE 10 MG TABLET (FP) PO SCH ×2 (06:17→16:32)
[2021-04-03] MEDS: INSULIN SLIDING SCALE (NOVOLOG) 1 VIAL SQ SCH ×4 (06:17→21:25)
[2021-04-03] MEDS: ARTIFICIAL TEARS (POLYVINYL ALCOHOL) OPTH DROPS OU SCH ×2 (09:37→21:36)
[2021-04-03] MEDS: PRENATAL VITAMINS W/ FOLIC ACID TABLET (FP) PO SCH (09:37)
[2021-04-03] MEDS: metoPROLOL SUCCINATE 25 MG TAB.SR.24H (FP) PO SCH (09:37)
[2021-04-03] MEDS: ASPIRIN 81 MG CHEWABLE TABLETS PO SCH (09:37)
[2021-04-03] MEDS: HYDROCHLOROTHIAZIDE 25 MG TABLET (FP) PO SCH (09:37)
[2021-04-03 11:30] LABS: HEMATOCRIT 43.6 % (35.4-49); HEMOGLOBIN 14.9 GM/dL (11.7-16.9); MCH 26.1 pg (25.7-33.7); MCHC 34.2 g/dl (32.0-35.9); MEAN CELL VOLUME 76.4 fl (80-96); MEAN PLT VOLUME 9.5 fl (7.5-11.1); PLATELET COUNT 191 10^3/uL (134-434); RBC 5.71 M/mm3 (4.00-5.60); RDW 15.2 % (11.9-15.9); WHITE BLOOD COUNT 9.1 K/mm3 (4.0-10.0)
[2021-04-03 11:35] LABS: URINE APPEARANCE CLEAR; URINE BILIRUBIN NEGATIVE (NEGATIVE); URINE COLOR YELLOW; URINE GLUCOSE (UA) 3+ (NEGATIVE); URINE KETONE NEGATIVE (NEGATIVE); URINE LEUK ESTERASE NEGATIVE (NEGATIVE); URINE NITRITE NEGATIVE (NEGATIVE); URINE PROTEIN NEGATIVE (NEGATIVE)
[2021-04-03] MEDS ORDERED: INSULIN (NOVOLOG) ASPART 100 UNITS/ML 10ML VIAL ONE ×3 (11:56→21:53)
[2021-04-03 12:01] LABS: CHLORIDE 103 mmol/L (98-107); SODIUM 137 mmol/L (136-145)
[2021-04-03 12:04] LABS: CALCIUM 9.6 mg/dL (8.5-10.1)
[2021-04-03 12:05] LABS: ALBUMIN 3.6 g/dl (3.4-5.0); ANION GAP 9 MMOL/L (8-16); BLOOD UREA NITROGEN 13.9 mg/dL (7-18); CO2 25 mmol/L (21-32)
[2021-04-03 12:08] LABS: CREATININE 1.1 mg/dL (0.55-1.3); SGOT/AST 17 U/L (15-37); SGPT/ALT 40 U/L (13-61)
[2021-04-03 12:09] LABS: ALK PHOS 61 U/L (45-117)
[2021-04-03 12:10] LABS: BILIRUBIN,TOTAL 0.4 mg/dL (0.2-1)
[2021-04-03 12:12] LABS: GLUCOSE,RANDOM 427 mg/dL (74-106)
[2021-04-03 12:17] LABS: SYPHILIS W/ RPR CONF NON-REACTIVE (NONREACTIVE)
[2021-04-03 12:58] LABS: HIV INTERPRETATION NEGATIVE (NEGATIVE)
[2021-04-03] MEDS ORDERED: FLU VACC QS2021-22(6MOS UP)/PF 60 MCG/0.5 ML SYRINGE IM ONE (13:00)
[2021-04-03] MEDS ORDERED: PT OWN MED DRAWER 7, Y5N ONE (16:16)
[2021-04-03] MEDS: ATORVASTATIN CA 40 MG TABLET (FP) PO SCH (21:23)
[2021-04-03] MEDS: THIAMINE HCL 100 MG TABLET (FP) PO SCH (21:23)
[2021-04-04] MEDS ORDERED: glipiZIDE 5 MG TABLET (FP) ONE ×2 (03:11→16:37)
[2021-04-04] MEDS: glipiZIDE 10 MG TABLET (FP) PO SCH ×2 (06:38→16:39)
[2021-04-04] MEDS: INSULIN SLIDING SCALE (NOVOLOG) 1 VIAL SQ SCH ×4 (06:38→22:01)
[2021-04-04] MEDS: metoPROLOL SUCCINATE 25 MG TAB.SR.24H (FP) PO SCH (10:00)
[2021-04-04] MEDS: PRENATAL VITAMINS W/ FOLIC ACID TABLET (FP) PO SCH (10:00)
[2021-04-04] MEDS: ARTIFICIAL TEARS (POLYVINYL ALCOHOL) OPTH DROPS OU SCH ×2 (10:00→21:19)
[2021-04-04] MEDS: HYDROCHLOROTHIAZIDE 25 MG TABLET (FP) PO SCH (10:01)
[2021-04-04] MEDS: ASPIRIN 81 MG CHEWABLE TABLETS PO SCH (10:01)
[2021-04-04] MEDS ORDERED: INSULIN (NOVOLOG) ASPART 100 UNITS/ML 10ML VIAL ONE ×3 (11:39→22:24)
[2021-04-04] MEDS: MAG HYDROX/AL HYDROX/SIMETH 30 ML UNIT-DOSE CUP PO PRN (19:37)
[2021-04-04] MEDS: THIAMINE HCL 100 MG TABLET (FP) PO SCH (21:19)
[2021-04-04] MEDS: ATORVASTATIN CA 40 MG TABLET (FP) PO SCH (21:19)
[2021-04-05] MEDS ORDERED: glipiZIDE 5 MG TABLET (FP) ONE ×2 (03:09→16:25)
[2021-04-05] MEDS: glipiZIDE 10 MG TABLET (FP) PO SCH ×2 (06:58→16:25)
[2021-04-05] MEDS: INSULIN SLIDING SCALE (NOVOLOG) 1 VIAL SQ SCH ×4 (06:59→21:17)
[2021-04-05] MEDS ORDERED: INSULIN (NOVOLOG) ASPART 100 UNITS/ML 10ML VIAL ONE ×4 (07:07→21:51)
[2021-04-05] MEDS: metoPROLOL SUCCINATE 25 MG TAB.SR.24H (FP) PO SCH (10:07)
[2021-04-05] MEDS: ARTIFICIAL TEARS (POLYVINYL ALCOHOL) OPTH DROPS OU SCH ×2 (10:07→21:18)
[2021-04-05] MEDS: ASPIRIN 81 MG CHEWABLE TABLETS PO SCH (10:07)
[2021-04-05] MEDS: HYDROCHLOROTHIAZIDE 25 MG TABLET (FP) PO SCH (10:07)
[2021-04-05] MEDS: PRENATAL VITAMINS W/ FOLIC ACID TABLET (FP) PO SCH (10:07)
[2021-04-05] MEDS: THIAMINE HCL 100 MG TABLET (FP) PO SCH (21:14)
[2021-04-05] MEDS: SENNOSIDES 8.6MG TABLET (FP) PO SCH (21:14)
[2021-04-05] MEDS: ATORVASTATIN CA 40 MG TABLET (FP) PO SCH (21:14)
[2021-04-06] MEDS ORDERED: glipiZIDE 5 MG TABLET (FP) ONE ×2 (03:13→16:31)
[2021-04-06] MEDS: glipiZIDE 10 MG TABLET (FP) PO SCH ×2 (06:09→16:33)
[2021-04-06] MEDS: INSULIN SLIDING SCALE (NOVOLOG) 1 VIAL SQ SCH ×4 (06:10→21:27)
[2021-04-06] MEDS ORDERED: INSULIN (NOVOLOG) ASPART 100 UNITS/ML 10ML VIAL ONE ×4 (06:52→21:31)
[2021-04-06] MEDS: ARTIFICIAL TEARS (POLYVINYL ALCOHOL) OPTH DROPS OU SCH ×2 (10:32→21:27)
[2021-04-06] MEDS: ASPIRIN 81 MG CHEWABLE TABLETS PO SCH (10:32)
[2021-04-06] MEDS: PRENATAL VITAMINS W/ FOLIC ACID TABLET (FP) PO SCH (10:32)
[2021-04-06] MEDS: metoPROLOL SUCCINATE 25 MG TAB.SR.24H (FP) PO SCH (10:32)
[2021-04-06] MEDS: HYDROCHLOROTHIAZIDE 25 MG TABLET (FP) PO SCH (10:32)
[2021-04-06] MEDS: SENNOSIDES 8.6MG TABLET (FP) PO SCH (21:24)
[2021-04-06] MEDS: ATORVASTATIN CA 40 MG TABLET (FP) PO SCH (21:24)
[2021-04-06] MEDS: THIAMINE HCL 100 MG TABLET (FP) PO SCH (21:24)
[2021-04-06] MEDS: MAG HYDROX/AL HYDROX/SIMETH 30 ML UNIT-DOSE CUP PO PRN (22:25)
[2021-04-07] MEDS ORDERED: glipiZIDE 5 MG TABLET (FP) ONE ×2 (03:09→16:28)
[2021-04-07] MEDS: glipiZIDE 10 MG TABLET (FP) PO SCH ×2 (06:25→16:29)
[2021-04-07] MEDS: INSULIN SLIDING SCALE (NOVOLOG) 1 VIAL SQ SCH ×4 (06:26→21:09)
[2021-04-07] MEDS: PRENATAL VITAMINS W/ FOLIC ACID TABLET (FP) PO SCH (10:29)
[2021-04-07] MEDS: metoPROLOL SUCCINATE 25 MG TAB.SR.24H (FP) PO SCH (10:29)
[2021-04-07] MEDS: ASPIRIN 81 MG CHEWABLE TABLETS PO SCH (10:29)
[2021-04-07] MEDS: ARTIFICIAL TEARS (POLYVINYL ALCOHOL) OPTH DROPS OU SCH ×2 (10:30→21:09)
[2021-04-07] MEDS: HYDROCHLOROTHIAZIDE 25 MG TABLET (FP) PO SCH (10:30)
[2021-04-07] MEDS ORDERED: INSULIN (NOVOLOG) ASPART 100 UNITS/ML 10ML VIAL ONE ×3 (11:52→21:49)
[2021-04-07] MEDS: THIAMINE HCL 100 MG TABLET (FP) PO SCH (21:06)
[2021-04-07] MEDS: SENNOSIDES 8.6MG TABLET (FP) PO SCH (21:07)
[2021-04-07] MEDS: ATORVASTATIN CA 40 MG TABLET (FP) PO SCH (21:07)
[2021-04-08] MEDS ORDERED: glipiZIDE 5 MG TABLET (FP) ONE ×2 (02:58→16:31)
[2021-04-08] MEDS: glipiZIDE 10 MG TABLET (FP) PO SCH ×2 (06:18→16:33)
[2021-04-08] MEDS: INSULIN SLIDING SCALE (NOVOLOG) 1 VIAL SQ SCH ×4 (06:19→21:22)
[2021-04-08] MEDS: HYDROCHLOROTHIAZIDE 25 MG TABLET (FP) PO SCH (10:36)
[2021-04-08] MEDS: ASPIRIN 81 MG CHEWABLE TABLETS PO SCH (10:36)
[2021-04-08] MEDS: metoPROLOL SUCCINATE 25 MG TAB.SR.24H (FP) PO SCH (10:36)
[2021-04-08] MEDS: PRENATAL VITAMINS W/ FOLIC ACID TABLET (FP) PO SCH (10:36)
[2021-04-08] MEDS: ARTIFICIAL TEARS (POLYVINYL ALCOHOL) OPTH DROPS OU SCH ×2 (10:37→21:22)
[2021-04-08] MEDS ORDERED: INSULIN (NOVOLOG) ASPART 100 UNITS/ML 10ML VIAL ONE ×2 (12:09→21:31)
[2021-04-08] MEDS: ATORVASTATIN CA 40 MG TABLET (FP) PO SCH (21:19)
[2021-04-08] MEDS: THIAMINE HCL 100 MG TABLET (FP) PO SCH (21:19)
[2021-04-08] MEDS: SENNOSIDES 8.6MG TABLET (FP) PO SCH (21:19)
[2021-04-09] MEDS: glipiZIDE 10 MG TABLET (FP) PO SCH ×2 (06:42→16:54)
[2021-04-09] MEDS ORDERED: INSULIN (NOVOLOG) ASPART 100 UNITS/ML 10ML VIAL ONE ×3 (07:11→16:53)
[2021-04-09] MEDS: INSULIN SLIDING SCALE (NOVOLOG) 1 VIAL SQ SCH ×4 (07:33→21:01)
[2021-04-09] MEDS: ARTIFICIAL TEARS (POLYVINYL ALCOHOL) OPTH DROPS OU SCH ×2 (09:48→21:02)
[2021-04-09] MEDS: PRENATAL VITAMINS W/ FOLIC ACID TABLET (FP) PO SCH (09:48)
[2021-04-09] MEDS: metoPROLOL SUCCINATE 25 MG TAB.SR.24H (FP) PO SCH (09:49)
[2021-04-09] MEDS: HYDROCHLOROTHIAZIDE 25 MG TABLET (FP) PO SCH (09:49)
[2021-04-09] MEDS: ASPIRIN 81 MG CHEWABLE TABLETS PO SCH (09:49)
[2021-04-09] MEDS: ACETAMINOPHEN 325 MG TABLET (FP) PO PRN (11:54)
[2021-04-09] MEDS ORDERED: glipiZIDE 5 MG TABLET (FP) ONE (16:52)
[2021-04-09] MEDS: MAG HYDROX/AL HYDROX/SIMETH 30 ML UNIT-DOSE CUP PO PRN (19:15)
[2021-04-09] MEDS: SENNOSIDES 8.6MG TABLET (FP) PO SCH (21:02)
[2021-04-09] MEDS: ATORVASTATIN CA 40 MG TABLET (FP) PO SCH (21:02)
[2021-04-09] MEDS: THIAMINE HCL 100 MG TABLET (FP) PO SCH (21:03)
[2021-04-10] MEDS: glipiZIDE 10 MG TABLET (FP) PO SCH ×2 (06:29→17:01)
[2021-04-10] MEDS ORDERED: INSULIN (NOVOLOG) ASPART 100 UNITS/ML 10ML VIAL ONE ×4 (07:11→21:59)
[2021-04-10] MEDS: INSULIN SLIDING SCALE (NOVOLOG) 1 VIAL SQ SCH ×4 (07:47→21:46)
[2021-04-10] MEDS: metoPROLOL SUCCINATE 25 MG TAB.SR.24H (FP) PO SCH (09:54)
[2021-04-10] MEDS: PRENATAL VITAMINS W/ FOLIC ACID TABLET (FP) PO SCH (09:54)
[2021-04-10] MEDS: HYDROCHLOROTHIAZIDE 25 MG TABLET (FP) PO SCH (09:54)
[2021-04-10] MEDS: ASPIRIN 81 MG CHEWABLE TABLETS PO SCH (09:55)
[2021-04-10] MEDS: ARTIFICIAL TEARS (POLYVINYL ALCOHOL) OPTH DROPS OU SCH ×2 (09:55→21:43)
[2021-04-10] MEDS ORDERED: glipiZIDE 5 MG TABLET (FP) ONE (17:01)
[2021-04-10] MEDS: THIAMINE HCL 100 MG TABLET (FP) PO SCH (21:43)
[2021-04-10] MEDS: ATORVASTATIN CA 40 MG TABLET (FP) PO SCH (21:43)
[2021-04-10] MEDS: SENNOSIDES 8.6MG TABLET (FP) PO SCH (21:43)
[2021-04-11] MEDS: glipiZIDE 10 MG TABLET (FP) PO SCH ×2 (06:01→17:26)
[2021-04-11] MEDS ORDERED: INSULIN (NOVOLOG) ASPART 100 UNITS/ML 10ML VIAL ONE ×3 (06:44→17:26)
[2021-04-11] MEDS ORDERED: glipiZIDE 5 MG TABLET (FP) ONE (06:45)
[2021-04-11] MEDS: INSULIN SLIDING SCALE (NOVOLOG) 1 VIAL SQ SCH ×4 (08:07→21:12)
[2021-04-11] MEDS: PRENATAL VITAMINS W/ FOLIC ACID TABLET (FP) PO SCH (09:39)
[2021-04-11] MEDS: metoPROLOL SUCCINATE 25 MG TAB.SR.24H (FP) PO SCH (09:39)
[2021-04-11] MEDS: ASPIRIN 81 MG CHEWABLE TABLETS PO SCH (09:40)
[2021-04-11] MEDS: MAG HYDROX/AL HYDROX/SIMETH 30 ML UNIT-DOSE CUP PO PRN (09:40)
[2021-04-11] MEDS: ARTIFICIAL TEARS (POLYVINYL ALCOHOL) OPTH DROPS OU SCH ×2 (09:40→21:59)
[2021-04-11] MEDS: HYDROCHLOROTHIAZIDE 25 MG TABLET (FP) PO SCH (09:40)
[2021-04-11] MEDS: ATORVASTATIN CA 40 MG TABLET (FP) PO SCH (21:08)
[2021-04-11] MEDS: SENNOSIDES 8.6MG TABLET (FP) PO SCH (21:08)
[2021-04-11] MEDS: THIAMINE HCL 100 MG TABLET (FP) PO SCH (21:09)
[2021-04-12] MEDS: INSULIN SLIDING SCALE (NOVOLOG) 1 VIAL SQ SCH ×4 (06:47→21:44)
[2021-04-12] MEDS: glipiZIDE 10 MG TABLET (FP) PO SCH ×2 (06:47→17:00)
[2021-04-12] MEDS: metoPROLOL SUCCINATE 25 MG TAB.SR.24H (FP) PO SCH (10:21)
[2021-04-12] MEDS: PRENATAL VITAMINS W/ FOLIC ACID TABLET (FP) PO SCH (10:21)
[2021-04-12] MEDS: HYDROCHLOROTHIAZIDE 25 MG TABLET (FP) PO SCH (10:21)
[2021-04-12] MEDS: ARTIFICIAL TEARS (POLYVINYL ALCOHOL) OPTH DROPS OU SCH ×2 (10:21→21:45)
[2021-04-12] MEDS: ASPIRIN 81 MG CHEWABLE TABLETS PO SCH (10:21)
[2021-04-12] MEDS: GABAPENTIN 300 MG CAPSULE PO SCH ×2 (11:50→21:45)
[2021-04-12] MEDS ORDERED: INSULIN (NOVOLOG) ASPART 100 UNITS/ML 10ML VIAL ONE ×3 (11:51→22:04)
[2021-04-12] MEDS: ATORVASTATIN CA 40 MG TABLET (FP) PO SCH (21:44)
[2021-04-12] MEDS: THIAMINE HCL 100 MG TABLET (FP) PO SCH (21:45)
[2021-04-12] MEDS: SENNOSIDES 8.6MG TABLET (FP) PO SCH (21:45)
[2021-04-13] MEDS: INSULIN SLIDING SCALE (NOVOLOG) 1 VIAL SQ SCH ×4 (06:04→21:04)
[2021-04-13] MEDS: glipiZIDE 10 MG TABLET (FP) PO SCH ×2 (06:04→16:43)
[2021-04-13] MEDS: PRENATAL VITAMINS W/ FOLIC ACID TABLET (FP) PO SCH (09:42)
[2021-04-13] MEDS: metoPROLOL SUCCINATE 25 MG TAB.SR.24H (FP) PO SCH (09:42)
[2021-04-13] MEDS: ARTIFICIAL TEARS (POLYVINYL ALCOHOL) OPTH DROPS OU SCH ×2 (09:43→21:04)
[2021-04-13] MEDS: HYDROCHLOROTHIAZIDE 25 MG TABLET (FP) PO SCH (09:43)
[2021-04-13] MEDS: GABAPENTIN 300 MG CAPSULE PO SCH ×2 (09:43→21:02)
[2021-04-13] MEDS: ASPIRIN 81 MG CHEWABLE TABLETS PO SCH (09:43)
[2021-04-13] MEDS ORDERED: INSULIN (NOVOLOG) ASPART 100 UNITS/ML 10ML VIAL ONE ×3 (11:39→21:38)
[2021-04-13] MEDS: MAG HYDROX/AL HYDROX/SIMETH 30 ML UNIT-DOSE CUP PO PRN (11:40)
[2021-04-13] MEDS: ACETAMINOPHEN 325 MG TABLET (FP) PO PRN (15:39)
[2021-04-13] MEDS ORDERED: glipiZIDE 5 MG TABLET (FP) ONE (16:41)
[2021-04-13] MEDS: SENNOSIDES 8.6MG TABLET (FP) PO SCH (21:02)
[2021-04-13] MEDS: ATORVASTATIN CA 40 MG TABLET (FP) PO SCH (21:02)
[2021-04-13] MEDS: THIAMINE HCL 100 MG TABLET (FP) PO SCH (21:02)
[2021-04-14] MEDS: INSULIN SLIDING SCALE (NOVOLOG) 1 VIAL SQ SCH ×4 (06:00→21:19)
[2021-04-14] MEDS: glipiZIDE 10 MG TABLET (FP) PO SCH ×2 (06:00→16:21)
[2021-04-14] MEDS: metoPROLOL SUCCINATE 25 MG TAB.SR.24H (FP) PO SCH (09:51)
[2021-04-14] MEDS: ASPIRIN 81 MG CHEWABLE TABLETS PO SCH (09:51)
[2021-04-14] MEDS: GABAPENTIN 300 MG CAPSULE PO SCH ×2 (09:51→21:16)
[2021-04-14] MEDS: ARTIFICIAL TEARS (POLYVINYL ALCOHOL) OPTH DROPS OU SCH ×2 (09:51→21:19)
[2021-04-14] MEDS: HYDROCHLOROTHIAZIDE 25 MG TABLET (FP) PO SCH (09:51)
[2021-04-14] MEDS: PRENATAL VITAMINS W/ FOLIC ACID TABLET (FP) PO SCH (09:51)
[2021-04-14] MEDS ORDERED: INSULIN (NOVOLOG) ASPART 100 UNITS/ML 10ML VIAL ONE ×4 (11:55→21:54)
[2021-04-14] MEDS ORDERED: glipiZIDE 5 MG TABLET (FP) ONE (16:21)
[2021-04-14] MEDS: SENNOSIDES 8.6MG TABLET (FP) PO SCH (21:16)
[2021-04-14] MEDS: ATORVASTATIN CA 40 MG TABLET (FP) PO SCH (21:16)
[2021-04-14] MEDS: THIAMINE HCL 100 MG TABLET (FP) PO SCH (21:16)
[2021-04-15] MEDS: glipiZIDE 10 MG TABLET (FP) PO SCH ×2 (06:24→16:27)
[2021-04-15] MEDS: INSULIN SLIDING SCALE (NOVOLOG) 1 VIAL SQ SCH ×4 (06:25→21:16)
[2021-04-15] MEDS: ASPIRIN 81 MG CHEWABLE TABLETS PO SCH (09:56)
[2021-04-15] MEDS: ARTIFICIAL TEARS (POLYVINYL ALCOHOL) OPTH DROPS OU SCH ×2 (09:56→21:51)
[2021-04-15] MEDS: GABAPENTIN 300 MG CAPSULE PO SCH ×2 (09:57→21:13)
[2021-04-15] MEDS: metoPROLOL SUCCINATE 25 MG TAB.SR.24H (FP) PO SCH (09:57)
[2021-04-15] MEDS: HYDROCHLOROTHIAZIDE 25 MG TABLET (FP) PO SCH (09:57)
[2021-04-15] MEDS: PRENATAL VITAMINS W/ FOLIC ACID TABLET (FP) PO SCH (10:33)
[2021-04-15] MEDS ORDERED: INSULIN (NOVOLOG) ASPART 100 UNITS/ML 10ML VIAL ONE (16:27)
[2021-04-15] MEDS: MAG HYDROX/AL HYDROX/SIMETH 30 ML UNIT-DOSE CUP PO PRN (16:29)
[2021-04-15] MEDS: SENNOSIDES 8.6MG TABLET (FP) PO SCH (21:13)
[2021-04-15] MEDS: THIAMINE HCL 100 MG TABLET (FP) PO SCH (21:13)
[2021-04-15] MEDS: ATORVASTATIN CA 40 MG TABLET (FP) PO SCH (21:13)
[2021-04-16] MEDS: glipiZIDE 10 MG TABLET (FP) PO SCH (06:13)
[2021-04-16] MEDS: INSULIN SLIDING SCALE (NOVOLOG) 1 VIAL SQ SCH (06:16)
[2021-04-16 06:36] VITALS: BP 151/100; PULSE 79; TEMP 98.6
[2021-04-16] MEDS ORDERED: INSULIN (NOVOLOG) ASPART 100 UNITS/ML 10ML VIAL ONE (07:06)
[2021-04-16] MEDS: PRENATAL VITAMINS W/ FOLIC ACID TABLET (FP) PO SCH (09:44)
[2021-04-16] MEDS: ARTIFICIAL TEARS (POLYVINYL ALCOHOL) OPTH DROPS OU SCH (09:44)
[2021-04-16] MEDS: metoPROLOL SUCCINATE 25 MG TAB.SR.24H (FP) PO SCH (09:44)
[2021-04-16] MEDS: HYDROCHLOROTHIAZIDE 25 MG TABLET (FP) PO SCH (09:45)
[2021-04-16] MEDS: ASPIRIN 81 MG CHEWABLE TABLETS PO SCH (09:45)
[2021-04-16] MEDS: GABAPENTIN 300 MG CAPSULE PO SCH (09:45)
[2021-04-16] MEDS: MAG HYDROX/AL HYDROX/SIMETH 30 ML UNIT-DOSE CUP PO PRN (09:46)
== END 2021-04-16 10:04 | disposition home or self-care (01) | DRG 772 ==
LOC: YASAS 12:06 → Y3W 18:42
PROVIDERS: ADMIT Allergy & Immunology; ATTEND Allergy & Immunology
PROC: HZ42ZZZ Group Counseling for Substance Abuse Treatment, Cognitive-Behavioral (ICD-10-PCS; principal; 2021-04-02)
DX: F10.20 Alcohol dependence, uncomplicated (principal); F14.20 Cocaine dependence, uncomplicated; F16.20 Hallucinogen dependence, uncomplicated; F17.210 Nicotine dependence, cigarettes, uncomplicated; I10 Essential (primary) hypertension; E78.5 Hyperlipidemia, unspecified; E11.42 Type 2 diabetes mellitus with diabetic polyneuropathy; H55.00 Unspecified nystagmus; E66.9 Obesity, unspecified; Z68.35 Body mass index [BMI] 35.0-35.9, adult; Z79.84 Long term (current) use of oral hypoglycemic drugs; I25.2 Old myocardial infarction
CPT/HCPCS: 36415; 80053; 81003; 82962; 85027; 86780; 86803; 87389; 90686; 93005; 93010; C9803; G0008; U0003; U0005